=== PATIENT | female | born 1975 | race Caucasian/White ===

== ENCOUNTER 2022-04-29 10:04 | Outpatient (CLI) | payer BC, SELFPAY ==
--- NOTE | 2022-04-29 10:15 | CRLHL7_ITS ---
For Patients: As a result of the Century Cures Act, medical imaging exams and procedure reports are released immediately into your electronic medical record. You may view this report before your referring provider. If you have questions, please contact your health care provider. BILATERAL SCREENING MAMMOGRAM WITH COMPUTER-AIDED DETECTION TECHNIQUE: CC and MLO views were obtained. These mammographic images have been obtained using full-field digital technique. These mammographic images were interpreted with the benefit of computer-aided detection. COMPARISON FILM: 05/26/17, 06/02/17 diagnostic. FINDINGS: The breasts are almost entirely fatty IMPRESSION: There is no radiographic evidence for malignancy. ASSESSMENT: BI-RADS Category 1: Negative RECOMMENDATION: Routine screening mammogram in 1 year. A lay language report of this examination will be provided to the patient. Michael Olivier M.D. Diagnostic Radiologist [email or web address] HUGH/Dictated by: Michael Olivier MD @ 04/29/2022 11:11:00 AM (Electronically Signed)
== END 2022-04-29 10:05 | disposition home or self-care (01) ==
LOC: MAMMO 10:05
PROVIDERS: PCP Emergency Medicine; Visit Provider Emergency Medicine
DX: Z12.31 Encounter for screening mammogram for malignant neoplasm of breast (principal)
CPT/HCPCS: 77063; 77067

== ENCOUNTER 2022-05-17 23:35 | Emergency (ER) | payer BC, SELFPAY ==
[2022-05-17 23:43] VITALS: BP 134/94; PULSE 89; RESP 18; TEMP 36.9; O2SAT 99; BMI 34.0
[2022-05-18] VITALS: O2SAT 99
--- NOTE | 2022-05-18 00:15 | ED_ITS ---
HPI - Abdominal Pain General Chief Complaint: Abdominal Pain Stated Complaint: Abdominal pain Time Seen by Provider: 05/18/22 00:00 History of Present Illness HPI narrative: 47-year-old woman accompanied by significant other to the emergency department with complaint of sharp ache in the epigastrium pain began fairly suddenly around 7 hours ago about 5:00 p.m.. It has waxed and waned but remained generally persistent. Does have a history of gallbladder disease and status post cholecystectomy some years ago and has been problem-free since. She says this feels like it did before but it does not hurt somewhat into her back. She does have some heartburn occasionally really with more of a sense of burning in her throat. No constipation or diarrhea noting her stools be generally looser. No melena no hematochezia. No nausea. No chest pain. No shortness of breath. No treatments attempted. Notes history of diabetes. Was seen yesterday in urgent care and diagnosed with a ?sinus cold?. She is not yet taking Augmentin which had been prescribed to start in a couple of days if needed. Related Data Home Medications Medication Instructions Recorded Confirmed ibuprofen 200 mg tablet mg PO BID PRN 02/18/22 02/18/22 omeprazole 20 mg tablet,delayed 20 mg PO QDAY PRN 02/18/22 02/18/22 release Previous Rx's Medication Instructions Recorded metformin 500 mg tablet 500 mg PO BID #60 tabs 05/13/22 amoxicillin 875 mg-potassium 1 tab PO BID 7 days #14 tabs 05/16/22 clavulanate 125 mg tablet Allergies Allergy/AdvReac Type Severity Reaction Status Date / Time No Known Allergies Allergy Unknown Verified 05/16/22 18:23 Review of Systems Status of ROS Reports: 10 or more systems reviewed and unremarkable except as noted in History and below PFSH PFS Medical History Hyperglycemia Hyperglycemia due to diabetes mellitus New onset type 2 diabetes mellitus Screening for breast cancer Sore throat Surgical History H/O section (09/12/09) History of cholecystectomy (09/12/09) Family History Other Arteriosclerotic cardiovascular disease (ASCVD) Diabetes Social History Smoking Status: Never smoker Do you use any of these nicotine containing products: None Second hand tobacco smoke exposure: No How often do you have a drink containing alcohol: never How often do you have six or more drinks on one occasion: Never AUDIT-C Alcohol total score: 0 Non-prescribed substance use: denies use Exam Narrative: Exam Narrative: Is pleasant. Seems mildly uncomfortable mildly anxious. Breathing easily. Speaking fluidly, easily. When talking about her pain hand is often at her epigastrium. Skin is warm and dry. Mild lower extremity dependent edema. Well-perfused peripherally. Oropharynx little sticky. Supple without lymphadenopathy. Lungs are clear There is no flank pain. Abdomen is soft overweight tender in the midepigastrium. Negative Cuellar's. Const: Vital Signs, click to edit/add: Vital Signs - 24 hr 05/17/22 23:43 05/18/22 01:58 05/18/22 00:00 Temperature 98.5 F Pulse Rate [Right Pulse Oximeter] 89 84 Respiratory Rate 18 18 Blood Pressure [Ri ght Upper Arm] 134/94 H 125/84 Pulse Oximetry 99 99 99 Oxygen Delivery Me thod Room Air Room Air 05/18/22 03:52 05/18/22 03:45 Temperature 98.5 F 98.0 F Pulse Rate [Right Pulse Oximeter] 84 85 Respiratory Rate 18 18 Blood Pressure [Ri ght Upper Arm] 125/84 117/74 Pulse Oximetry 99 Oxygen Delivery Me thod Room Air Documenting provider has reviewed patient's vital signs: yes Course Course Hospital Course: Discussed differential with Ms. Melvin and her . I propose a trial of GI cocktail though also drawing labs with further imaging or evaluation pending this result. Reevaluation(s) Reevaluation #1: GI cocktail well numbing the throat does not really seem to alter discomfort much but over time discomfort did seem to lessen. Did not feel needed stronger pain medications. Pain is still present, intense. Normal liver function panel, urinalysis also normal other than concentrated. CRP was elevated Vital Signs Vital signs: Initial Vital Signs Temperature 98.5 F 05/17/22 23:43 Temperature Source Temporal Artery Scan 05/17/22 23:43 Pulse Rate 89 05/17/22 23:43 Respiratory Rate 18 05/17/22 23:43 Blood Pressure 134/94 H 05/17/22 23:43 Blood Pressure Mean 107 05/17/22 23:43 Blood Pressure Position Sitting 05/17/22 23:43 Pulse Oximetry 99 05/17/22 23:43 Oxygen Delivery Method 05/17/22 23:43 Vital Signs Temperature 98.5 F 05/17/22 23:43 Pulse Rate 89 05/17/22 23:43 Respiratory Rate 18 05/17/22 23:43 Blood Pressure 134/94 H 05/17/22 23:43 Pulse Oximetry 99 05/17/22 23:43 Oxygen Delivery Method 05/17/22 23:43 Temperature 98.5 F 05/18/22 03:52 Pulse Rate 84 05/18/22 03:52 Respiratory Rate 18 05/18/22 03:52 Blood Pressure 125/84 05/18/22 03:52 Pulse Oximetry 99 05/18/22 03:45 Oxygen Delivery Method 05/18/22 03:45 MDM - Abdominal Pain MDM Narrative Medical decision making narrative: I did review results of imaging of the CT abdomen pelvis with contrast. Appeared to have some extended almost cystic nature to the duodenum but I think this might be within normal limits. Radiology over-read is below--- IMPRESSION: Nothing seen to explain the patient`s epigastric pain. Normal appearance of the stomach, proximal small bowel, and pancreas. CT of the abdomen show satisfactory appearance status post cholecystectomy with no sign of biliary ductal dilatation. Normal CT of the pelvis with contrast. Ultimately unclear etiology. GERD with esophageal spasm? Hepato-biliary? Evolving gastroenteritis? Lab Data Attestation: I reviewed the patient's lab results. Labs: Lab Results 05/17/22 05/18/22 05/18/22 Range/Units 23:59 01:00 01:00 WBC 8.83 (4.50-11.00) K/uL RBC 4.59 (4.00-5.20) m/uL Hgb 13.7 (12.0-16.0) gm/dL Hct 41.7 (33.0-51.0) % MCV 91 (80-100) fL MCH 30 (26-34) pg MCHC 33 (32-36) gm/dL RDW Coeff of Navdeep 12.0 (11.5-15.5) % Plt Count 352 (140-440) K/uL Neut % (Auto) 53.2 (42.0-72.0) % Lymph % (Auto) 30.4 (20-44) % [place]oval % (Auto) 10.0 (0.0-11.0) % Eos % (Auto) 5.5 (0.0-7.0) % Baso % (Auto) 0.7 (0.0-3.0) % Neut # (Auto) 4.70 (1.7-7.0) K/uL Lymph # (Auto) 2.68 (0.90-2.90) K/uL [place] # (Auto) 0.90 (0.00-0.90) K/UL Eos # (Auto) 0.49 (0.00-0.50) K/uL Baso # (Auto) 0.06 (0.00-0.30) K/uL Abs Immat Gran (auto) 0.02 (0.00-0.30) K/uL D-Dimer Quant (PE/DVT) (0.00-0.50) ug/ml Sodium 142 (135-149) mmol/L Potassium 4.5 (3.6-5.1) mmol/L Chloride 105 (96-114) mmol/L Carbon Dioxide 27 (20-32) mmol/L BUN 15 (5-24) mg/dL Creatinine 0.8 (0.5-1.5) mg/dL Estimated Creat Clear 76.68 Estimated GFR 93 ml/min Glucose 162 H (60-115) mg/dL Calcium 9.1 (8.4-10.6) mg/dL Total Bilirubin (0.1-1.5) mg/dL Direct Bilirubin (0.0-0.5) mg/dL AST (12-35) U/L ALT (4-35) U/L Alkaline Phosphatase (40-150) U/L C-Reactive Protein 3.6 H (0.5-1.0) mg/dL Total Protein (6.0-8.3) g/dL Albumin (3.3-5.0) g/dL Lipase (23-300) U/L Urine Color Yellow (Yellow) Urine Appearance Clear (Clear) Urine pH 5.5 (5.0-8.5) Ur Specific [place] >= 1.030 (1.000-1.030) Urine Protein Negative (Negative) Urine Glucose (UA) Negative (Negative) Urine Ketones Negative (Negative) Urine Blood Negative (Negative) Urine Nitrite Negative (Negative) Urine Bilirubin Negative (Negative) Urine Urobilinogen 0.2 (0.2-1.0) Ur Leukocyte Esterase Negative (Negative) Urine RBC 0-2 (0-2) Urine WBC 2-5 (0-5) Ur Squamous Epith Cells Few (None-Few) Urine Bacteria Few A (None) 05/18/22 05/18/22 Range/Units 01:00 01:00 WBC (4.50-11.00) K/uL RBC (4.00-5.20) m/uL Hgb (12.0-16.0) gm/dL Hct (33.0-51.0) % MCV (80-100) fL MCH (26-34) pg MCHC (32-36) gm/dL RDW Coeff of Navdeep (11.5-15.5) % Plt Count (140-440) K/uL Neut % (Auto) (42.0-72.0) % Lymph % (Auto) (20-44) % [place] % (Auto) (0.0-11.0) % Eos % (Auto) (0.0-7.0) % Baso % (Auto) (0.0-3.0) % Neut # (Auto) (1.7-7.0) K/uL Lymph # (Auto) (0.90-2.90) K/uL [place] # (Auto) (0.00-0.90) K/UL Eos # (Auto) (0.00-0.50) K/uL Baso # (Auto) (0.00-0.30) K/uL Abs Immat Gran (auto) (0.00-0.30) K/uL D-Dimer Quant (PE/DVT) 0.38 (0.00-0.50) ug/ml Sodium (135-149) mmol/L Potassium (3.6-5.1) mmol/L Chloride (96-114) mmol/L Carbon Dioxide (20-32) mmol/L BUN (5-24) mg/dL Creatinine (0.5-1.5) mg/dL Estimated Creat Clear Estimated GFR ml/min Glucose (60-115) mg/dL Calcium (8.4-10.6) mg/dL Total Bilirubin 0.4 (0.1-1.5) mg/dL Direct Bilirubin 0.2 (0.0-0.5) mg/dL AST 30 (12-35) U/L ALT 30 (4-35) U/L Alkaline Phosphatase 108 (40-150) U/L C-Reactive Protein (0.5-1.0) mg/dL Total Protein 7.4 (6.0-8.3) g/dL Albumin 4.1 (3.3-5.0) g/dL Lipase 137 (23-300) U/L Urine Color (Yellow) Urine Appearance (Clear) Urine pH (5.0-8.5) Ur Specific [place] (1.000-1.030) Urine Protein (Negative) Urine Glucose (UA) (Negative) Urine Ketones (Negative) Urine Blood (Negative) Urine Nitrite (Negative) Urine Bilirubin (Negative) Urine Urobilinogen (0.2-1.0) Ur Leukocyte Esterase (Negative) Urine RBC (0-2) Urine WBC (0-5) Ur Squamous Epith Cells (None-Few) Urine Bacteria (None) Discharge Plan Discharge Clinical Impression: Epigastric abdominal pain Patient Disposition: Home w/ Parent or Adult Condition: Improved Additional Instructions: I would make a follow up in clinic to consider further evaluation. This may include ultrasound or MRI or another referral, perhaps to General Surgery. Stay well-hydrated. Return for marked increase in persistent pain, associated frequent vomiting, associated fever. Prescriptions: No Action ibuprofen 200 mg tablet PO BID PRN omeprazole 20 mg tablet,delayed release (DR/EC) 20 mg PO QDAY PRN amoxicillin-pot clavulanate 875-125 mg tablet 1 tab PO BID 7 Days Qty: 14 0RF metformin 500 mg tablet 500 mg PO BID Qty: 60 0RF Rx Instructions: Take one tablet twice daily Follow Up/Referrals: Rocio Onofre MD [Primary Care Provider] - Stand Alone Forms: MyHealth Info Instructions
[2022-05-18 00:20] LABS: Appearance Urine Clear (Clear); Bilirubin Urine Negative (Negative); Blood Urine Negative (Negative); Color Urine Yellow (Yellow); Glucose Urine Negative (Negative); Ketones Urine Negative (Negative); Leukocyte Esterase Urine Negative (Negative); Nitrite Urine Negative (Negative); Protein Urine Negative (Negative); Specific Gravity Urine >= 1.030 (1.000-1.030); Urobilinogen Urine 0.2 (0.2-1.0); pH Urine 5.5 (5.0-8.5)
[2022-05-18 00:27] LABS: Bacteria Urine Few; RBC Urine 0-2 (0-2); Squamous Epithelial Cell Urine Few (None-Few)
[2022-05-18] MEDS: GI COCKTAIL (VISC LIDO/ANTACID) 30 ML PO (00:42)
[2022-05-18 01:06] LABS: Basophils Absolute Auto 0.06 K/uL (0.00-0.30); Basophils Percent Auto 0.7 % (0.0-3.0); Eosinophils Absolute Auto 0.49 K/uL (0.00-0.50); Eosinophils Percent Auto 5.5 % (0.0-7.0); Hematocrit 41.7 % (33.0-51.0); Hemoglobin* 13.7 gm/dL (12.0-16.0); Immature Granulocytes Abs Auto 0.02 K/uL (0.00-0.30); Lymphocytes Absolute Auto 2.68 K/uL (0.90-2.90); Lymphocytes Percent Auto 30.4 % (20-44); Mean Corpuscular HGB Conc 33 gm/dL (32-36); Mean Corpuscular Hemoglobin 30 pg (26-34); Mean Corpuscular Volume 91 fL (80-100); Neutrophils Percent Auto 53.2 % (42.0-72.0); Platelet Count* 352 K/uL (140-440); Red Blood Count 4.59 m/uL (4.00-5.20); White Blood Count* 8.83 K/uL (4.50-11.00)
[2022-05-18 01:24] LABS: Chloride* 105 mmol/L (96-114); D Dimer Quantitative* 0.38 ug/ml (0.00-0.50); Potassium* 4.5 mmol/L (3.6-5.1); Sodium* 142 mmol/L (135-149)
[2022-05-18 01:25] LABS: Albumin* 4.1 g/dL (3.3-5.0)
[2022-05-18 01:26] LABS: Creatinine* 0.8 mg/dL (0.5-1.5); Est. Creatinine Clearance* 76.68; Estimated Glomerular Filt Rate 93 ml/min
[2022-05-18 01:27] LABS: Blood Urea Nitrogen* 15 mg/dL (5-24); Carbon Dioxide* 27 mmol/L (20-32); Glucose* 162 mg/dL (60-115)
[2022-05-18 01:28] LABS: Alanine Aminotransferase* 30 U/L (4-35); Alkaline Phosphatase* 108 U/L (40-150); Aspartate Amino Transferase* 30 U/L (12-35); Bilirubin Direct* 0.2 mg/dL (0.0-0.5); Bilirubin Total* 0.4 mg/dL (0.1-1.5); Calcium* 9.1 mg/dL (8.4-10.6); Lipase* 137 U/L (23-300); Total Protein* 7.4 g/dL (6.0-8.3)
[2022-05-18 01:29] LABS: Slide Review Reflex No
[2022-05-18 01:30] LABS: C Reactive Protein* 3.6 mg/dL (0.5-1.0)
--- NOTE | 2022-05-18 01:50 | CRLHL7_ITS ---
For Patients: As a result of the Century Cures Act, medical imaging exams and procedure reports are released immediately into your electronic medical record. You may view this report before your referring provider. If you have questions, please contact your health care provider. INDICATION: Epigastric pain. COMPARISON: None available. TECHNIQUE: CT examination of the abdomen and pelvis was performed with the uneventful intravenous administration of 97 cc of Isovue 370 while 3 mm thick axial sections were obtained from the lung bases through the pubic symphysis. Oral contrast was not administered. Please note that all CT scans at this facility use dose modulation, iterative reconstruction, and/or weight-based dosing when appropriate to reduce radiation dose to as low as reasonably achievable. FINDINGS: In the abdomen, the liver, spleen, pancreas, and adrenals are normal in appearance. The kidneys are normal in appearance. Clips are seen in the gall bladder fossa from cholecystectomy. There is no sign of biliary ductal dilatation. The abdominal aorta is normal in caliber with no sign of dilatation. There is no sign of retroperitoneal mass or adenopathy. The stomach, loops of small bowel, and colon in the abdomen are normal in appearance. In the pelvis, the appendix is normal in appearance with no sign of inflammatory process. The loops of small bowel, colon, and rectum in the pelvis are normal in appearance. The uterus is and adnexal regions are normal in appearance. Nabothian cysts are seen at the cervix. The urinary bladder is normal in appearance. There is no sign of pelvic or inguinal mass or adenopathy. There is no sign of free air or free fluid in the abdomen or pelvis. The lung bases are clear. The osseous structures are normal in appearance for the patient`s age. IMPRESSION: Nothing seen to explain the patient`s epigastric pain. Normal appearance of the stomach, proximal small bowel, and pancreas. CT of the abdomen show satisfactory appearance status post cholecystectomy with no sign of biliary ductal dilatation. Normal CT of the pelvis with contrast. Please note that all CT scans at this facility use dose modulation, iterative reconstruction, and/or weight-based dosing when appropriate to reduce radiation dose to as low as reasonably achievable. Dictated by Kurt Panchal MD @ 05/18/2022 3:17:46 AM (Electronically Signed)
[2022-05-18 01:58] VITALS: BP 125/84; PULSE 84; RESP 18; O2SAT 99
[2022-05-18 03:45] VITALS: BP 117/74; PULSE 85; RESP 18; TEMP 36.7; O2SAT 99
[2022-05-18 03:52] VITALS: BP 125/84; PULSE 84; RESP 18; TEMP 36.9
== END 2022-05-18 03:53 | disposition home or self-care (01) ==
PROVIDERS: Emergency Provider Family Medicine; PCP Emergency Medicine
DX: R10.13 Epigastric pain (principal)
CPT/HCPCS: 36415; 74177; 80048; 80076; 81001; 83690; 85025; 85379; 86140; 87086; 94761; 99284; A9270; Q9967

== ENCOUNTER 2022-05-29 09:48 | Outpatient (CLI) | payer BC, SELFPAY ==
[2022-05-29 14:37] LABS: Cholesterol* 206 mg/dL (90-199)
[2022-05-29 14:38] LABS: HDL Cholesterol* 42 mg/dL (>=50); LDL Cholesterol Calculated 133 mg/dL (<100); Triglycerides* 155 mg/dL (40-149)
== END 2022-05-29 09:49 | disposition home or self-care (01) ==
LOC: LKVREF 09:49
PROVIDERS: PCP Emergency Medicine; Visit Provider Emergency Medicine
DX: Z13.6 Encounter for screening for cardiovascular disorders (principal)
CPT/HCPCS: 80061

== ENCOUNTER 2022-06-09 08:42 | Emergency (ER) | payer BC, SELFPAY ==
[2022-06-09 08:46] VITALS: BP 134/99; PULSE 120; RESP 18; TEMP 37.7; O2SAT 99; BMI 34.0
--- NOTE | 2022-06-09 08:56 | ED_ITS ---
HPI - General Adult General Time Seen by Provider: 08:56 Date Seen: 06/09/22 Chief complaint: Arrhythmia/Palpitations Stated complaint: Heart issue Time Seen by Provider: 06/09/22 08:56 Source: patient and RN notes reviewed Mode of arrival: ambulatory Limitations: no limitations History of Present Illness HPI narrative: This 47-year-old female is coming in with a sense of palpitations and fast heart rate. 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 When her left arm felt a little weird and tingly. She wondered if it was maybe the 1st sensation of carpal tunnel. She has never been diagnosed with carpal tunnel. Her arm started to feel little tight, she checked her watch and saw that her heart rate was in the 120s. This started to concern her, she did end up having a heart rate up to the 170s but admits she started to get quite anxious. She eventually decided to leave work and come here to the ER. There was no chest pain but she could feel her heart beating fast, no shortness of breath. She was started on rosuvastatin 2 days ago for elevated cholesterol. She is diabetic on metformin. No treatment for hypertension. She was yelling at her daughter's game over the weekend and thought she just maybe had a slight cough from that starting yesterday. No sore throat, no fevers or chills, no myalgias. No prior history of cardiac or respiratory disease, no prior thromboembolic disease for this patient. She has had no prolonged travel or immobilization. She does drive a school bus however and certainly likely has been exposed to illness. There is strong family history and her dad side of cardiac illness. He from a massive PA in his 50s, her paternal grandfather had cardiac issues, there are other relatives on that side of the family with similar issues. She has had a bottle of water this morning but nothing else. Does not drink alcohol, does not smoke. Related Data Home Medications Medication Instructions Recorded Confirmed ibuprofen 200 mg tablet mg PO BID PRN 02/18/22 02/18/22 omeprazole 20 mg tablet,delayed 20 mg PO QDAY PRN 02/18/22 02/18/22 release aspirin 81 mg tablet,delayed 81 mg PO DAILY 06/09/22 06/09/22 release (Adult Aspirin Regimen) Previous Rx's Medication Instructions Recorded metformin 500 mg tablet,extended 500 mg PO QDAY #90 tabs 06/03/22 release 24 hr rosuvastatin 10 mg tablet 10 mg PO QDAY #90 tabs 06/05/22 Allergies Allergy/AdvReac Type Severity Reaction Status Date / Time metformin Allergy Intermediate Diarrhea Verified 05/29/22 09:33 Review of Systems Status of ROS: Reports: 10 or more systems reviewed and unremarkable except as noted in History and below PFS PFS Medical History (Updated 06/09/22 @ 13:12 by Madiha Delgado MD) Hyperglycemia Hyperglycemia due to diabetes mellitus Hyperlipidemia New onset type 2 diabetes mellitus Screening for breast cancer Screening for hyperlipidemia Sore throat Surgical History H/O section (09/12/09) History of cholecystectomy (09/12/09) Family History (Updated 05/29/22 @ 10:17 by Rocio Onofre MD) Father Coronary artery disease Brother Coronary artery disease Other Arteriosclerotic cardiovascular disease (ASCVD) Diabetes Social History Smoking Status: Never smoker Do you use any of these nicotine containing products: None Second hand tobacco smoke exposure: No How often do you have a drink containing alcohol: never How often do you have six or more drinks on one occasion: Never AUDIT-C Alcohol total score: 0 Non-prescribed substance use: denies use Exam Const: Vital Signs, click to edit/add: Vital Signs - 24 hr 06/09/22 08:46 06/09/22 10:20 06/09/22 12:00 Temperature 99.9 F H Pulse Rate [Pulse Oximeter] 120 H 112 H 114 H Respiratory Rate 18 16 20 Blood Pressure [Ri ght Upper Arm] 134/99 H 116/98 H 113/78 Pulse Oximetry 99 97 98 Oxygen Delivery Me thod Room Air Room Air Room Air 06/09/22 11:00 Temperature Pulse Rate [Pulse Oximeter] 107 H Respiratory Rate 18 Blood Pressure [Ri ght Upper Arm] 110/81 Pulse Oximetry 99 Oxygen Delivery Me thod Room Air Documenting provider has reviewed patient's vital signs: yes Common normals: no apparent distress, oriented x3, no limitations, healthy appearing, alert and well nourished General appearance: cooperative, comfortable, well kempt and well developed Nutritional appearance: overweight HENMT: Common normals: normocephalic, head/scalp atraumatic, hearing grossly normal bilaterally, external nose normal, nasal mucous membranes and turbinates normal, moist oral mucous membranes, oropharynx normal, dentition normal and gingiva normal Head and scalp: normocephalic and atraumatic Nose: external nose normal and nasal mucous membranes and turbinates normal Eye: Common normals: PERRL, EOMs intact bilaterally, conjunctivae normal and no scleral icterus Conjunctiva: conjunctiva(e) normal Pupil: PERRL Neck & C-Spine: Common normals: full ROM, no lymphadenopathy, supple, no meningeal signs, no JVD and thyroid normal Thyroid: thyroid normal Lymph: Lymphatic: no lymphadenopathy noted Chest: Common normals: inspection of chest normal Resp: Common normals: normal respiratory effort, no retractions, no use of accessory muscles and clear to auscultation bilaterally Auscultation: clear to auscultation bilaterally Cardio: Common normals: no JVD, regular rhythm, S1 normal heart sound, S2 normal heart sound, no gallops, no clicks and no murmurs Rate: tachycardic Rhythm: regular rhythm Heart sounds: S1 normal and S2 normal GI: Common normals: Normal to inspection, nondistended, normoactive bowel sounds present, soft to palpation, non-tender, no hepatosplenomegaly and no masses Palpation: soft and no hepatosplenomegaly Extremity: Common normals: normal to inspection, full ROM, normal capillary refill, no joint enlargement, no clubbing, cyanosis or edema, no calf tenderness and no pedal edema Neuro: Common normals: oriented x3, CN's II-XII intact bilaterally, moves all extremities, no focal motor deficits, no sensory deficits noted and gait normal Sensorium/orientation: alert Meningeal signs: no meningeal signs Speech: speech normal Psych: Appearance: well kempt Course Course Hospital Course: Reviewed with patient that she currently is in a sinus tachycardia. This is usually reflective of an underlying process stimulating that. We will check a full complement of labs including thyroid. We will get a portable chest x-ray. Did discuss with her doing the triple swab for viral etiologies given the outbreak of RSV/influenza/COVID that we are seen. Would get a D-dimer as well. Will certainly consider cardiopulmonary processes including ischemic disease, obtain troponin point of care. Will give her L fluids, see if she response to this. Will continue with cardiac monitoring and pulse oximetry. Reevaluation(s) Reevaluation #1: Went to check on patient to see if she had responded to the IV fluids. I unfortunately had for gotten to order them, will get her L over 1 hour. She will be here for an hour anyway as we do need to recheck follow-up troponin on her. At this time her labs minus a pending TSH and chest x-ray are looking reassuring, no concerning abnormalities. Pulse is down to 110 without any i ntervention. Again will start the L of IV fluids. Time: 10:25 Reevaluation #2: Patient and I reviewed her normal work up-to-date. The only thing that remains it is mild sinus tachycardia and a repeat temperature of 99.1?. I do wonder if she is developing an underlying illness. She has tested negative for COVID and influenza but reviewed with her that if she is becoming more symptomatic, may want to retest as there certainly can be false negatives. I would have her continue to follow her heart rate at this time, there is not indication to suppress or slow this at this time. Time: 13:08 Vital Signs Vital signs: Initial Vital Signs Temperature 99.9 F H 06/09/22 08:46 Temperature Source Temporal Artery Scan 06/09/22 08:46 Pulse Rate 120 H 06/09/22 08:46 Respiratory Rate 18 06/09/22 08:46 Blood Pressure 134/99 H 06/09/22 08:46 Blood Pressure Mean 110 06/09/22 08:46 Blood Pressure Position Supine 06/09/22 08:46 Pulse Oximetry 99 06/09/22 08:46 Oxygen Delivery Method 06/09/22 08:46 Vital Signs Temperature 99.9 F H 06/09/22 08:46 Pulse Rate 120 H 06/09/22 08:46 Respiratory Rate 18 06/09/22 08:46 Blood Pressure 134/99 H 06/09/22 08:46 Pulse Oximetry 99 06/09/22 08:46 Oxygen Delivery Method 06/09/22 08:46 Temperature 99.9 F H 06/09/22 08:46 Pulse Rate 114 H 06/09/22 12:00 Respiratory Rate 20 06/09/22 12:00 Blood Pressure 113/78 06/09/22 12:00 Pulse Oximetry 98 06/09/22 12:00 Oxygen Delivery Method 06/09/22 12:00 Medical Decision Making Lab Data Lab results reviewed: Yes I reviewed the patient's lab results Labs: Lab Results 06/09/22 06/09/22 06/09/22 Range/Units 09:09 09:09 09:09 WBC 8.77 (4.50-11.00) K/uL RBC 4.51 (4.00-5.20) m/uL Hgb 13.7 (12.0-16.0) gm/dL Hct 40.7 (33.0-51.0) % MCV 90 (80-100) fL MCH 30 (26-34) pg MCHC 34 (32-36) gm/dL RDW Coeff of Navdeep 11.8 (11.5-15.5) % Plt Count 345 (140-440) K/uL Neut % (Auto) 83.6 H (42.0-72.0) % Lymph % (Auto) 7.0 L (20-44) % [place] % (Auto) 6.6 (0.0-11.0) % Eos % (Auto) 2.4 (0.0-7.0) % Baso % (Auto) 0.3 (0.0-3.0) % Neut # (Auto) 7.30 H (1.7-7.0) K/uL Lymph # (Auto) 0.60 L (0.90-2.90) K/uL [place] # (Auto) 0.60 (0.00-0.90) K/UL Eos # (Auto) 0.21 (0.00-0.50) K/uL Baso # (Auto) 0.03 (0.00-0.30) K/uL Abs Immat Gran (auto) 0.01 (0.00-0.30) K/uL Imm/Tot Granulo (auto) 0.1 % D-Dimer Quant (PE/DVT) 0.31 (0.00-0.50) ug/ml Sodium 140 (135-149) mmol/L Potassium 4.2 (3.6-5.1) mmol/L Chloride 107 (96-114) mmol/L Carbon Dioxide 25 (20-32) mmol/L BUN 10 (5-24) mg/dL Creatinine 0.7 (0.5-1.5) mg/dL Estimated Creat Clear 87.64 Estimated GFR 109 ml/min Glucose 118 H (60-115) mg/dL Calcium 8.9 (8.4-10.6) mg/dL Total Bilirubin 0.8 (0.1-1.5) mg/dL AST 24 (12-35) U/L ALT 20 (4-35) U/L Alkaline Phosphatase 114 (40-150) U/L C-Reactive Protein 1.0 (0.5-1.0) mg/dL NT-Pro-B Natriuret Pep 61 (0-125) PG/mL Total Protein 7.5 (6.0-8.3) g/dL Albumin 4.5 (3.3-5.0) g/dL TSH (0.270-4.200) uIU/mL SARS-CoV-2 (PCR) (Negative) Influenza Type A (PCR) (Negative) Influenza Type B (PCR) (Negative) RSV (PCR) (Negative) POC Troponin I (0.01-0.04) ng/ml 06/09/22 06/09/22 06/09/22 Range/Units 09:09 09:09 09:18 WBC (4.50-11.00) K/uL RBC (4.00-5.20) m/uL Hgb (12.0-16.0) gm/dL Hct (33.0-51.0) % MCV (80-100) fL MCH (26-34) pg MCHC (32-36) gm/dL RDW Coeff of Navdeep (11.5-15.5) % Plt Count (140-440) K/uL Neut % (Auto) (42.0-72.0) % Lymph % (Auto) (20-44) % [place] % (Auto) (0.0-11.0) % Eos % (Auto) (0.0-7.0) % Baso % (Auto) (0.0-3.0) % Neut # (Auto) (1.7-7.0) K/uL Lymph # (Auto) (0.90-2.90) K/uL [place] # (Auto) (0.00-0.90) K/UL Eos # (Auto) (0.00-0.50) K/uL Baso # (Auto) (0.00-0.30) K/uL Abs Immat Gran (auto) (0.00-0.30) K/uL Imm/Tot Granulo (auto) % D-Dimer Quant (PE/DVT) (0.00-0.50) ug/ml Sodium (135-149) mmol/L Potassium (3.6-5.1) mmol/L Chloride (96-114) mmol/L Carbon Dioxide (20-32) mmol/L BUN (5-24) mg/dL Creatinine (0.5-1.5) mg/dL Estimated Creat Clear Estimated GFR ml/min Glucose (60-115) mg/dL Calcium (8.4-10.6) mg/dL Total Bilirubin (0.1-1.5) mg/dL AST (12-35) U/L ALT (4-35) U/L Alkaline Phosphatase (40-150) U/L C-Reactive Protein (0.5-1.0) mg/dL NT-Pro-B Natriuret Pep (0-125) PG/mL Total Protein (6.0-8.3) g/dL Albumin (3.3-5.0) g/dL TSH 0.885 (0.270-4.200) uIU/mL SARS-CoV-2 (PCR) Negative SARS-CoV-2 (Negative) Influenza Type A (PCR) Negative PCR FLU A (Negative) Influenza Type B (PCR) Negative PCR FLU B (Negative) RSV (PCR) Negative PCR RSV (Negative) POC Troponin I 0.00 L (0.01-0.04) ng/ml 06/09/22 Range/Units 12:30 WBC (4.50-11.00) K/uL RBC (4.00-5.20) m/uL Hgb (12.0-16.0) gm/dL Hct (33.0-51.0) % MCV (80-100) fL MCH (26-34) pg MCHC (32-36) gm/dL RDW Coeff of Navdeep (11.5-15.5) % Plt Count (140-440) K/uL Neut % (Auto) (42.0-72.0) % Lymph % (Auto) (20-44) % [place] % (Auto) (0.0-11.0) % Eos % (Auto) (0.0-7.0) % Baso % (Auto) (0.0-3.0) % Neut # (Auto) (1.7-7.0) K/uL Lymph # (Auto) (0.90-2.90) K/uL [place] # (Auto) (0.00-0.90) K/UL Eos # (Auto) (0.00-0.50) K/uL Baso # (Auto) (0.00-0.30) K/uL Abs Immat Gran (auto) (0.00-0.30) K/uL Imm/Tot Granulo (auto) % D-Dimer Quant (PE/DVT) (0.00-0.50) ug/ml Sodium (135-149) mmol/L Potassium (3.6-5.1) mmol/L Chloride (96-114) mmol/L Carbon Dioxide (20-32) mmol/L BUN (5-24) mg/dL Creatinine (0.5-1.5) mg/dL Estimated Creat Clear Estimated GFR ml/min Glucose (60-115) mg/dL Calcium (8.4-10.6) mg/dL Total Bilirubin (0.1-1.5) mg/dL AST (12-35) U/L ALT (4-35) U/L Alkaline Phosphatase (40-150) U/L C-Reactive Protein (0.5-1.0) mg/dL NT-Pro-B Natriuret Pep (0-125) PG/mL Total Protein (6.0-8.3) g/dL Albumin (3.3-5.0) g/dL TSH (0.270-4.200) uIU/mL SARS-CoV-2 (PCR) (Negative) Influenza Type A (PCR) (Negative) Influenza Type B (PCR) (Negative) RSV (PCR) (Negative) POC Troponin I 0.00 L (0.01-0.04) ng/ml Imaging Data Chest x-ray: Attestation: I have reviewed the pertinent imaging results. My impression: No acute cardio pulmonary pathology on my preliminary read. Radiologist's impression: Patient: BETTYE HAY Facility:?[facility] Patient ID:?[id number] Site Patient ID:?[id number]. Site :?[id number] Study:?XRay Chest 1 VIEW PORTABLE-06/09/2022 9:35:11 AM Ordering Physician:Balbir Cleary Final Report: INDICATION: Tachycardia TECHNIQUE: Chest 1 view COMPARISON: 04/10/2017 FINDINGS: Cardiovascular and mediastinum: Heart size and vasculature are normal in caliber and appearance. Lungs and pleural spaces: Lungs are clear. No sign of infiltrate or mass. No sign of pleural effusion. No pneumothorax. Bones and soft tissues: No significant findings. IMPRESSION: No acute findings. Dictated by Michael Olivier MD @ 06/09/2022 9:54:19 AM (Electronic Signature) ECG Data Attestation: I personally reviewed and interpreted this ECG as follows: (Sinus tachycardia, 118 beats per minute, no ischemic change. QT corrected 476 milliseconds.) Prior ECG tracings: not available for review Interpretation: Repeat EKG at 12:33 p.m. shows sinus tachycardia, 111 beats per minute, no ischemia. No significant change. Critical Care Time Critical Care Time Critical Care Time: No Discharge Plan Discharge Clinical Impression: Sinus tachycardia Condition: Stable Instructions: Atrial Tachycardia (ED) Additional Instructions: Recommend getting a clinic follow-up scheduled for within the next 7-10 days. Ideally would like this within a week but we have a holiday coming up, do not know if it is reasonable that you will get in in an earlier time frame. Continue to monitor your heart rate. If your heart rate is starting to consistently be over 120-130 and not settling down with rest, do recommend re- evaluation. Should you develop any shortness of breath, difficulty breathing, edema, chest pain/discomfort with elevated heart rate, do need you to seek re- evaluation. I am wondering/suspect may be developing a viral illness is underway with your low-grade temperatures in the 99 range. We have certainly seen sinus tachycardia associated with COVID. If you start develop influenza or COVID like illness, can consider being retested. There certainly can be false negatives early on in illness for these viruses. Activity Level: Activity as Tolerated Discharge Diet: Regular Prescriptions: No Action ibuprofen 200 mg tablet PO BID PRN omeprazole 20 mg tablet,delayed release (DR/EC) 20 mg PO QDAY PRN metformin 500 mg tablet extended release 24 hr 500 mg PO QDAY Qty: 90 0RF rosuvastatin 10 mg tablet 10 mg PO QDAY Qty: 90 0RF aspirin [Adult Aspirin Regimen] 81 mg tablet,delayed release (DR/EC) 81 mg PO DAILY Follow Up/Referrals: Rocio Onofre MD [Primary Care Provider] - Stand Alone Forms: [employer] Info Instructions
--- NOTE | 2022-06-09 09:03 | ED.NURSE ---
pt placed on heart monitor, shows st 120. ekg done.
--- NOTE | 2022-06-09 09:09 | CRLHL7_ITS ---
For Patients: As a result of the Century Cures Act, medical imaging exams and procedure reports are released immediately into your electronic medical record. You may view this report before your referring provider. If you have questions, please contact your health care provider. INDICATION: Tachycardia TECHNIQUE: Chest 1 view COMPARISON: 04/10/2017 FINDINGS: Cardiovascular and mediastinum: Heart size and vasculature are normal in caliber and appearance. Lungs and pleural spaces: Lungs are clear. No sign of infiltrate or mass. No sign of pleural effusion. No pneumothorax. Bones and soft tissues: No significant findings. IMPRESSION: No acute findings. Dictated by Michael Olivier MD @ 06/09/2022 9:54:19 AM (Electronically Signed)
[2022-06-09 09:28] LABS: Basophils Absolute Auto 0.03 K/uL (0.00-0.30); Basophils Percent Auto 0.3 % (0.0-3.0); Eosinophils Absolute Auto 0.21 K/uL (0.00-0.50); Eosinophils Percent Auto 2.4 % (0.0-7.0); Hematocrit 40.7 % (33.0-51.0); Hemoglobin* 13.7 gm/dL (12.0-16.0); Immature Granulocytes Abs Auto 0.01 K/uL (0.00-0.30); Immature Granulocytes Pct Auto 0.1 %; Mean Corpuscular HGB Conc 34 gm/dL (32-36); Mean Corpuscular Hemoglobin 30 pg (26-34); Mean Corpuscular Volume 90 fL (80-100); Monocytes Percent Auto 6.6 % (0.0-11.0); Neutrophils Percent Auto 83.6 % (42.0-72.0); Platelet Count* 345 K/uL (140-440); RDW Coefficient of Variation % 11.8 % (11.5-15.5); Red Blood Count 4.51 m/uL (4.00-5.20); White Blood Count* 8.77 K/uL (4.50-11.00)
[2022-06-09 09:36] LABS: Slide Review Reflex No
[2022-06-09 09:43] LABS: Albumin* 4.5 g/dL (3.3-5.0); Chloride* 107 mmol/L (96-114)
[2022-06-09 09:44] LABS: Potassium* 4.2 mmol/L (3.6-5.1); Sodium* 140 mmol/L (135-149)
[2022-06-09 09:46] LABS: Bilirubin Total* 0.8 mg/dL (0.1-1.5); Creatinine* 0.7 mg/dL (0.5-1.5); D Dimer Quantitative* 0.31 ug/ml (0.00-0.50); Est. Creatinine Clearance* 87.64; Estimated Glomerular Filt Rate 109 ml/min
[2022-06-09 09:47] LABS: Alanine Aminotransferase* 20 U/L (4-35); Alkaline Phosphatase* 114 U/L (40-150); Aspartate Amino Transferase* 24 U/L (12-35); Blood Urea Nitrogen* 10 mg/dL (5-24); Calcium* 8.9 mg/dL (8.4-10.6); Carbon Dioxide* 25 mmol/L (20-32); Glucose* 118 mg/dL (60-115); Total Protein* 7.5 g/dL (6.0-8.3)
[2022-06-09 09:55] LABS: NT Pro B Type NatriureticPept* 61 PG/mL (0-125)
[2022-06-09 10:07] LABS: PCR FLU A Negative PCR FLU A (Negative); PCR FLU B Negative PCR FLU B (Negative); PCR RSV Negative PCR RSV (Negative)
[2022-06-09 10:17] LABS: SARS PCR* Negative SARS-CoV-2 (Negative)
[2022-06-09 10:20] VITALS: BP 116/98; PULSE 112; RESP 16; O2SAT 97
[2022-06-09] MEDS: 0.9 % SODIUM CHLORIDE 1000 ml 1,000 ML IV (10:30)
[2022-06-09 11:00] VITALS: BP 110/81; PULSE 107; RESP 18; O2SAT 99
[2022-06-09 11:20] LABS: TSH With Reflex to FT4* 0.885 uIU/mL (0.270-4.200)
[2022-06-09 12:00] VITALS: BP 113/78; PULSE 114; RESP 20; O2SAT 98
[2022-06-09 13:00] VITALS: BP 118/80; PULSE 109; RESP 18; O2SAT 98
== END 2022-06-09 13:28 | disposition home or self-care (01) ==
PROVIDERS: Emergency Provider Family Medicine; PCP Emergency Medicine
DX: R00.0 Tachycardia, unspecified (principal)
CPT/HCPCS: 36415; 71045; 80053; 83880; 84443; 85025; 85379; 86140; 87502; 87634; 87635; 93005; 94761; 96360; 99284; J7030

== ENCOUNTER 2022-08-28 11:09 | Outpatient (CLI) | payer BC, SELFPAY ==
[2022-08-28 22:07] LABS: Creatinine Urine 89.6 mg/dL
[2022-08-28 22:12] LABS: Microalbumin Creatinine Ratio 10 mg/g (0-30); Microalbumin Urine < 1 mg/dL
== END 2022-08-28 11:10 | disposition home or self-care (01) ==
PROVIDERS: PCP Emergency Medicine; Visit Provider Emergency Medicine
DX: E11.9 Type 2 diabetes mellitus without complications (principal); E78.5 Hyperlipidemia, unspecified; E11.65 Type 2 diabetes mellitus with hyperglycemia; R73.9 Hyperglycemia, unspecified; E66.9 Obesity, unspecified
CPT/HCPCS: 80061; 82043; 82570

== ENCOUNTER 2022-08-29 11:42 | Outpatient (CLI) | payer BC, SELFPAY ==
[2022-08-29 14:08] LABS: Cholesterol* 129 mg/dL (90-199)
[2022-08-29 14:09] LABS: HDL Cholesterol* 49 mg/dL (>=50); LDL Cholesterol Calculated 62 mg/dL (<100); Triglycerides* 91 mg/dL (40-149)
== END 2022-08-29 11:43 | disposition home or self-care (01) ==
PROVIDERS: PCP Emergency Medicine; Visit Provider Emergency Medicine
DX: E78.5 Hyperlipidemia, unspecified (principal)
CPT/HCPCS: 80061